=== PATIENT | male | born 1995 | race Caucasian/White ===

== ENCOUNTER 2022-10-06 09:58 | Emergency (ER) | payer OTHER, SELFPAY ==
--- NOTE | ~2022-10-06 | XR_ITS ---
EXAMINATION: XR ANKLE, LEFT CLINICAL INFORMATION: Left ankle injury. COMPARISON: None TECHNIQUE: AP, lateral, and mortise views of the left ankle. An indicator arrow points to the lateral ankle. FINDINGS: The bones and soft tissues are normal. No fracture. Alignment is anatomic. Joint spaces are maintained. No joint effusion. XR/XR ankle LT min 3V IMPRESSION: Unremarkable left ankle.
--- NOTE | ~2022-10-06 | XR_ITS ---
EXAMINATION: XR FOOT, LEFT CLINICAL INFORMATION: Left foot pain, injury COMPARISON: None TECHNIQUE: AP, lateral, and oblique views of the left foot. FINDINGS: No acute fracture or malalignment. No erosions, or suspicious soft tissue calcifications, or radiopaque foreign body. XR/XR foot LT min 3V IMPRESSION: No acute fracture or malalignment.
[2022-10-06 10:19] VITALS: BP 142/74; PULSE 86; RESP 16; TEMP 35.6; O2SAT 96; BMI 24.3
--- NOTE | 2022-10-06 12:38 | ED.LOWEXIN ---
HPI - Extremity Injury (Lower) General Chief Complaint: Extremity Injury, Lower <BIPIN Ibrahim Last Filed: 10/06/22 13:14> Stated Complaint: l ankle inj <BIPNI Ibrahim Last Filed: 10/06/22 13:14> Time Seen by Provider: 10/06/22 11:40 <BIPIN Ibrahim Last Filed: 10/06/22 13:14> Source: patient <BIPIN Ibrahim Last Filed: 10/06/22 13:14> Mode of arrival: ambulatory <BIPIN Ibrahim Last Filed: 10/06/22 13:14> History of Present Illness HPI Narrative: 27-year-old male with no significant past medical history presenting to the ED complaining of left ankle / foot pain and swelling s/p twisting while playing basketball 1 month ago. Reports jumped up, and when landed landed onto inverted ankle. Has been ambulatory with pain. Denies injury to other area, numbness, tingling, weakness. <BIPIN Ibrahim Last Filed: 10/06/22 13:14> MD complaint: ankle injury and foot injury <BIPIN Ibrahim Last Filed: 10/06/22 13:14> Related Data Allergies/Adverse Reactions: Allergies Allergy/AdvReac Type Severity Reaction Status Date / Time No Known Allergies Allergy Unverified 05/14/20 18:39 <BIPIN Ibrahim Last Filed: 10/06/22 13:14> Review of Systems Review of Systems: Constitutional: No Fever, No Chills ENT/Mouth: No Ear Pain, No Nasal Congestion, No sore throat, No Rhinorrhea, No Swallowing Difficulty Cardiovascular: No Chest Pain, No SOB Respiratory: No Cough, No Sputum Gastrointestinal: No Nausea, No Vomiting, No Diarrhea, No Constipation, No Abdominal pain Genitourinary: No Dysuria, No Urinary Frequency, No Hematuria Musculoskeletal: +joint pain, No Myalgias,+Joint Swelling Skin: No Skin Lesions, No rash Neuro: No Weakness, No Numbness, No Paresthesias <BIPIN Ibrahim Last Filed: 10/06/22 13:14> Yes all other systems are reviewed and are negative <BIPIN Ibrahim Last Filed: 10/06/22 13:14> Constitutional: Constitutional: Reports as per HPI <BIPIN Ibrahim - Last Filed: 10/06/22 13:14> [facility] Past Medical History Attestation statement: The following information was validated with the patient. <BIPIN Ibrahim - Last Filed: 10/06/22 13:14> Social History Social History: Social History Alcohol intake: never Smoked in Last 30 Days: No Use of substances other than those prescribed or required for medical reasons: No Advance Directives: No <BIPIN Ibrahim - Last Filed: 10/06/22 13:14> Physical Exam Vital Signs: Vital Signs: Last Vital Signs Temp 96.1 F L 10/06/22 10:19 Pulse 86 10/06/22 10:19 Resp 16 10/06/22 10:19 BP 142/74 H 10/06/22 10:19 Pulse Ox 96 10/06/22 10:19 O2 Del Method 10/06/22 10:19 BMI result Body Mass Index 24.3 <BIPIN Ibrahim - Last Filed: 10/06/22 13:14> Vital Signs: Last Vital Signs Temp 96.1 F L 10/06/22 10:19 Pulse 86 10/06/22 10:19 Resp 16 10/06/22 10:19 BP 142/74 H 10/06/22 10:19 Pulse Ox 96 10/06/22 10:19 O2 Del Method 10/06/22 10:19 BMI result Body Mass Index 24.3 <Simon Anderson MD - Last Filed: 10/08/22 01:33> Const: General: cooperative, healthy appearing and no acute distress <BIPIN Ibrahim - Last Filed: 10/06/22 13:14> Orientation/consciousness: patient oriented x3 <BIPIN Ibrahim - Last Filed: 10/06/22 13:14> Limitations: no limitations <BIPIN Ibrahim - Last Filed: 10/06/22 13:14> HEENT: Head: Yes normal to inspection and Yes atraumatic <BIPIN Ibrahim - Last Filed: 10/06/22 13:14> Ears: hearing grossly normal bilaterally <Dawna Tavarez PA - Last Filed: 10/06/22 13:14> General nose exam: Normal external nose present <BIPIN Ibrahim - Last Filed: 10/06/22 13:14> Face and sinus: Yes normal facial exam <Dawna Tavarez PA - Last Filed: 10/06/22 13:14> Eyes: General: appearance normal, both eyes and all related structures <Dawna Tavarez PA - Last Filed: 10/06/22 13:14> EOM: EOMs intact bilaterally <BIPIN Ibrahim - Last Filed: 10/06/22 13:14> Neck: Neck: Yes normal visual inspection and Yes no meningeal signs <Dawna Tavarez PA - Last Filed: 10/06/22 13:14> Resp: Effort & Inspection: normal respiratory effort and no respiratory distress <BIPIN Ibrahim - Last Filed: 10/06/22 13:14> Cardio: Rate: regular rate <Dawna Tavarez PA - Last Filed: 10/06/22 13:14> Peripheral pulses: dorsalis pedis present <BIPIN Ibrahim - Last Filed: 10/06/22 13:14> Skin: Rashes: no rashes <Dawna Tavarez PA - Last Filed: 10/06/22 13:14> Wounds: no wounds <Dawna Tavarez PA - Last Filed: 10/06/22 13:14> Neuro: General: patient oriented x3, tone normal and no meningeal signs <Dawna Tavarez PA - Last Filed: 10/06/22 13:14> Gait exam (Neuro): Normal gait present <BIPIN Ibrahim - Last Filed: 10/06/22 13:14> Extrem: Other: Left foot with healing ecchymosis to volar aspect, diffusely tender to palpation. Left ankle without noted deformity/ swelling, diffusely tender. ROM intact. NV intact <BIPIN Ibrahim - Last Filed: 10/06/22 13:14> Course Course Course Narrative: - ankle x-ray unremarkable - foot x-ray unremarkable Results discussed with patient including worrisome signs and symptoms and strict return precautions, and when to return to the emergency department. They verbalized understanding and feel safe for discharge at this time. <BIPIN Ibrahim - Last Filed: 10/06/22 13:14> Medical Decision Making Medical Decision Making MDM Narrative: 27-year-old male with no significant past medical history presenting to the ED complaining of left ankle / foot pain and swelling s/p twisting while playing basketball 1 month ago. on exam vital signs stable, NAD, nontoxic appearing with physical exam as noted above. Concern for fracture versus sprain. No evidence of cellulitis /septic point/arthritis. Plan: X-rays Please refer to course for remaining clinical decision making, interpretation of labs/imaging results, and discussions with consultants and/or family members. <BIPIN Ibrahim - Last Filed: 10/06/22 13:14> Differential Diagnosis Differential Diagnoses: The differential diagnosis associated with the presentation includes <BIPIN Ibrahim - Last Filed: 10/06/22 13:14> as above <BIPIN Ibrahim - Last Filed: 10/06/22 13:14> Radiology Impression Discussion of test interpretation with radiology: I have reviewed the radiologist's reading. <BIPIN Ibrahim - Last Filed: 10/06/22 13:14> Prescription Management I considered prescription management with: Pain Medication <BIPIN Ibrahim - Last Filed: 10/06/22 13:14> Attestation Attending Attestation: I reviewed PIANO ACCOMPANIST/PA/Resident note, assessment and plan. I agree with the documentation, assessment and plan unless otherwise stated. <Simon Anderson MD - Last Filed: 10/08/22 01:33> Discharge Plan Discharge Clinical Impression: Ankle sprain and strain, Foot sprain <BIPIN Ibrahim - Last Filed: 10/06/22 13:14> Patient Disposition: Home, Self-Care <BIPIN Ibrahim - Last Filed: 10/06/22 13:14> Instructions: Ankle Sprain (ED), Foot Sprain (ED) <BIPIN Ibrahim - Last Filed: 10/06/22 13:14> Additional Instructions: your ankle x-rays unremarkable. your foot x-ray is currently still pending, we will contact you with positive results. Ice and elevate. Take Tylenol and Motrin as needed. Wear [place] wrap for comfort and stability. Follow up with her doctor. If symptoms persist or worsen return to the ED <BIPIN Ibrahim - Last Filed: 10/06/22 13:14> Referrals: Sofiya Fisher MD [Primary Care Provider] - <BIPIN Ibrahim - Last Filed: 10/06/22 13:14> Interventions: ED Discharge Assessment Last Done: 10/06/22 13:16 <BIPIN Ibrahim - Last Filed: 10/06/22 13:14> Discharge Date/Time: 10/06/22 13:17 <BIPIN Ibrahim - Last Filed: 10/06/22 13:14>
== END 2022-10-06 13:17 | disposition home or self-care (01) ==
PROVIDERS: Emergency Provider Emergency Medicine; PCP Family Medicine
DX: S93.402A Sprain of unspecified ligament of left ankle, initial encounter (principal); S96.912A Strain of unspecified muscle and tendon at ankle and foot level, left foot, initial encounter; X50.1XXA Overexertion from prolonged static or awkward postures, initial encounter; Y93.64 Activity, baseball; Y92.310 Basketball court as the place of occurrence of the external cause; Y99.9 Unspecified external cause status
CPT/HCPCS: 73610; 73630; 99283